=== PATIENT | male | born 1945 | race Caucasian/White ===

== ENCOUNTER 2017-11-07 11:51 | Day surgery (SDC) | payer OTHER ==
[2017-11-07] MEDS: LACTATED RINGER'S 1,000 ML IV* (08:30)
[2017-11-07] MEDS: DEXAMETHASONE 2 MG TAB PO (12:26)
[2017-11-07] MEDS: traMADol 50 MG TAB PO (12:26)
[2017-11-07] MEDS ORDERED: PROPOFOL 20 ML (13:30)
[2017-11-07] MEDS ORDERED: CEFAZOLIN 1 GM INJ (13:30)
[2017-11-07] MEDS ORDERED: LIDOCAINE 2% (SDV) 5 ML INJ (13:30)
[2017-11-07] MEDS ORDERED: MIDAZOLAM 1 MG/ML 2 ML INJ (13:30)
[2017-11-07] MEDS ORDERED: ROPIVACAINE 0.5 % 30 ML VIAL (13:30)
[2017-11-07 13:48] LABS: ANION GAP 12 (8-16); BLOOD UREA NITROGEN 17 mg/dl (7-20); CALCIUM 9.8 mg/dl (8.4-10.2); CARBON DIOXIDE 24 mmol/L (21-31); CHLORIDE 110 mmol/L (97-110); CREATININE 0.92 mg/dl (0.61-1.24); GLUCOSE 95 mg/dl (70-220); POTASSIUM 4.1 mmol/L (3.5-5.1); SODIUM 142 mmol/L (135-144)
[2017-11-07] MEDS ORDERED: MEPERIDINE 25 MG INJ IV (15:30)
[2017-11-07] MEDS ORDERED: FENTAnyl 50 MCG/ML VIAL IV ×3 (15:30)
[2017-11-07] MEDS ORDERED: MIDAZOLAM 1 MG/ML 2 ML INJ IV (15:30)
[2017-11-07] MEDS ORDERED: HYDROmorphONE 1 MG/5 ML IV SYRINGE IV ×2 (15:30)
[2017-11-07] MEDS ORDERED: EPHEDrine SULFATE 50 MG/5 ML SYG IV (15:30)
[2017-11-07] MEDS ORDERED: ONDANSETRON 4 MG INJ IV (15:30)
[2017-11-07] MEDS ORDERED: OXYCODONE/ACETAMINOPHEN (5/325) TAB PO ×2 (15:30)
[2017-11-07] MEDS ORDERED: DIPHENHYDRAMINE 50 MG INJ IV (15:30)
[2017-11-07] MEDS ORDERED: hydrALAzine 20 MG INJ IV (15:30)
[2017-11-07] MEDS ORDERED: LABETALOL HCL 20MG INJ IV (15:30)
[2017-11-07] MEDS: CEFAZOLIN 2 GM/50 ML (PMX) 50 ML IVPB (15:53)
[2017-11-07] MEDS ORDERED: FENTAnyl 50 MCG/ML VIAL (16:10)
[2017-11-07] MEDS: SODIUM CHLORIDE 0.9% 1L IRRIG IRR (16:10)
[2017-11-07] MEDS ORDERED: ONDANSETRON 4 MG INJ (16:19)
[2017-11-07] MEDS: TRANEXAMIC ACID 1,000 MG in DEXTROSE 5% 100 ML IVPB (16:30)
[2017-11-07] MEDS ORDERED: NALOXONE (0.4 MG/ML) INJ (16:41)
[2017-11-07] MEDS: HYDROmorphONE 1 MG/5 ML IV SYRINGE IV (17:34)
[2017-11-07] MEDS: METOCLOPRAMIDE 10 MG INJ IV (17:34)
== END 2017-11-07 19:19 | disposition home or self-care (01) ==
LOC: SDS 11:51
DX: M75.102 Unspecified rotator cuff tear or rupture of left shoulder, not specified as traumatic (principal); M75.42 Impingement syndrome of left shoulder; M13.812 Other specified arthritis, left shoulder; S43.492D Other sprain of left shoulder joint, subsequent encounter; X58.XXXD Exposure to other specified factors, subsequent encounter
CPT/HCPCS: 29823; 71045; 80048